=== PATIENT | female | born 1985 | race Two or more races ===

== ENCOUNTER 2022-09-16 18:20 | Emergency (ER) | payer OTHER, MEDICAID ==
[~2022-09-16] VITALS: Ht 165.1 cm; Wt 98.0 kg
[2022-09-16 19:45] VITALS: BP 131/74
[2022-09-16] MEDS: DexAMETHasone SOD PHOS 10MG/1ML VIAL INJ IM ONE ×2 (20:00→20:14)
[2022-09-16] MEDS: diphenhdrAMINE HCL 50 MG/1 ML VL IM ONE ×2 (20:00→20:13)
== END 2022-09-16 23:37 | disposition left against medical advice (07) ==
LOC: ER 18:20
DX: R21 Rash and other nonspecific skin eruption (principal); J02.9 Acute pharyngitis, unspecified; Z53.21 Procedure and treatment not carried out due to patient leaving prior to being seen by health care provider
CPT/HCPCS: J1100